=== PATIENT | female | born 1980 | race Hispanic/Latino ===

== ENCOUNTER 2022-02-22 17:32 | Emergency (ER) | payer OTHER ==
[~2022-02-22] VITALS: Ht 157.5 cm; Wt 82.6 kg
[2022-02-22 18:15] LABS: BASOPHILS % (AUTO) 0.4 % (0.0-5.0); EOSINOPHILS % (AUTO) 0.1 % (0.0-8.0); HEMATOCRIT 41.1 % (36-48); MEAN CORPUSCULAR HEMOGLOBIN 30.4 pg (27.0-33.0); MEAN CORPUSCULAR HGB CONC 33.8 g/dL (32.0-36.0); MEAN CORPUSCULAR VOLUME 89.9 fL (79-99); MONOCYTES % (AUTO) 3.8 % (3.0-13.0); NEUTROPHILS % (AUTO) 79.3 % (40.0-77.0); PLATELET COUNT (AUTO) 338 K/uL (130-400); RED BLOOD CELL COUNT(AUTO) 4.57 MIL/uL (4.00-5.50); RED CELL DISTRIBUTION WIDTH 12.5 % (11.0-15.5); WHITE BLOOD COUNT (AUTO) 14.4 K/uL (4.8-10.8)
[2022-02-22 18:17] LABS: APPEARANCE,URINE CLOUDY (CLEAR); BILIRUBIN,URINE NEGATIVE (NEGATIVE); COLOR,URINE LIGHT-YELLOW (YELLOW); GLUCOSE, URINE (UA) NEGATIVE (NEGATIVE); KETONES,URINE NEGATIVE (NEGATIVE); LEUKOCYTE ESTERASE ,URINE 250 Leu/uL (NEGATIVE); NITRATE,URINE NEGATIVE (NEGATIVE); PH,URINE 5.5 (5.0-8.0); PROTEIN,URINE NEGATIVE (NEGATIVE); UROBILINOGEN,URINE 0.2 mg/dL (0.2-1.0)
[2022-02-22 18:23] LABS: BACTERIA,URINE RARE /HPF (None Seen); MUCUS,URINE RARE LPF (None Seen); SQUAMOUS EPITHELIAL CELL,UR MOD /HPF (0-2)
[2022-02-22 18:29] LABS: CREATININE 0.7 mg/dL (0.5-1.5); POTASSIUM 3.9 mmol/L (3.5-5.1); TOTAL PROTEIN, SERUM 8.1 g/dL (6.0-8.3)
[2022-02-22 18:32] LABS: HCG,QUALITATIVE URINE NEGATIVE (NEGATIVE)
[2022-02-22] MEDS ORDERED: FAMOTIDINE 20MG VIAL IV ONE (20:30)
[2022-02-22] MEDS ORDERED: 0.9%NACL 1000ML 1,000 ML IV ONE (20:30)
[2022-02-22] MEDS ORDERED: MORPHINE 4 MG SYG IVP ONE (20:30)
[2022-02-22] MEDS ORDERED: ONDANSETRON 4MG INJ IVP ONE (20:30)
[2022-02-22] MEDS ORDERED: PANT40TA54 PO (23:48)
[2022-02-22] MEDS ORDERED: ONDA4TAB10 PO (23:48)
[2022-02-22] MEDS ORDERED: FAMO-136 PO (23:48)
[2022-02-23 00:30] VITALS: BP 136/82
== END 2022-02-23 00:48 | disposition home or self-care (01) ==
LOC: EDBD 17:32 → EDH 17:32
DX: K29.70 Gastritis, unspecified, without bleeding (principal)
CPT/HCPCS: 99285; 74177; 96374; 96375; 96361; 82150; 84484; 80053; 83690; 85025; 87088; 83605; 81001; 81025; 36415; 93005; J3490; J2405; J2270